=== PATIENT | female | born 1960 | race Caucasian/White ===

== ENCOUNTER 2018-01-25 18:36 | Emergency (ER) | payer OTHER ==
[~2018-01-25] VITALS: Ht 160 cm; Wt 96.2 kg
[~2018-01-25 18:36] MED LIST: ADVAIR HFA 230/12 GM IH; CIPRO500 MG; CLONAZEPAM1 MG PO; COZAAR50 MG PO; LEVAQUIN750 MG PO; OMEPRAZOLE20 MG PO; ORPH100T PO; PAXIL20 MG; PROVENTIL3 ML/2.5 M IH; RELPAX40 MG; SINGULAIR 10MG10 MG PO; TAMS0.4C PO; TESSALON PERLE100 M1 PO; TRAMADOL HCL-AP1 TAB; TUSSI PRES-B L120 M1 PO; ZOLOFT25 MG PO; ZOLOFT50 MG
[2018-01-25] MEDS ORDERED: ZANTAC300 MG (18:51)
[2018-01-25] MEDS ORDERED: PRILOSEC OTC20 MG (18:51)
[2018-01-25] MEDS ORDERED: HYDROCHLOROTHIA25 MG (18:53)
[2018-01-26] MEDS ORDERED: INTESTINEX680 M1 PO (02:18)
[2018-01-26] MEDS ORDERED: LEVSIN/SL0.125 MG PO (02:18)
[2018-01-26] MEDS ORDERED: PEPCID AC20 MG PO (02:18)
[2018-01-26] MEDS ORDERED: PROMETHAZINE HC25 MG PO (02:18)
[2018-01-27] MEDS ORDERED: ZOLOFT50 MG PO (13:15)
[2018-01-27] MEDS ORDERED: ZOLOFT25 MG PO (13:17)
== END 2018-01-26 03:35 | disposition home or self-care (01) ==
LOC: ER 18:36
DX: K52.89 Other specified noninfective gastroenteritis and colitis (principal)

== ENCOUNTER 2018-01-27 12:54 | Emergency (ER) | payer OTHER ==
[~2018-01-27] VITALS: Ht 152.4 cm; Wt 96.2 kg
[~2018-01-27 12:54] MED LIST changes: +HYDROCHLOROTHIA25 MG; +INTESTINEX680 M1 PO; +LEVSIN/SL0.125 MG PO; +PEPCID AC20 MG PO; +PRILOSEC OTC20 MG; +PROMETHAZINE HC25 MG PO; +ZANTAC300 MG
[2018-01-27] MEDS ORDERED: ZOLOFT50 MG PO (13:15)
[2018-01-27] MEDS ORDERED: ZOLOFT25 MG PO (13:17)
== END 2018-01-28 04:13 | disposition home or self-care (01) ==
LOC: ER 12:54
DX: K52.89 Other specified noninfective gastroenteritis and colitis (principal); R19.7 Diarrhea, unspecified; E87.6 Hypokalemia

== ENCOUNTER 2018-01-31 07:57 | Emergency (ER) | payer OTHER ==
[~2018-01-31] VITALS: Ht 162.6 cm; Wt 96.2 kg
[~2018-01-31 07:57] MED LIST changes: +ZOLOFT50 MG PO
== END 2018-01-31 19:12 | disposition home or self-care (01) ==
LOC: ER 07:57
DX: M79.605 Pain in left leg (principal); M79.604 Pain in right leg; E87.6 Hypokalemia

== ENCOUNTER 2018-04-20 00:55 | Emergency (ER) | payer OTHER ==
[~2018-04-20] VITALS: Ht 162.6 cm; Wt 92.5 kg
[2018-04-20] MEDS ORDERED: BUDESONIDE0.5 MG/2 M IH (08:35)
[2018-04-20] MEDS ORDERED: TESSALON PERLE100 MG PO (08:35)
[2018-04-20] MEDS ORDERED: MEDROLPACK PO (08:35)
[2018-04-20] MEDS ORDERED: IPRAT-ALBUT 0.5-3 ML IH (08:35)
[2018-04-20] MEDS ORDERED: MUCINEX DM ER1 EAC1 PO (08:35)
[2018-04-20] MEDS ORDERED: LEVAQUIN750 MG PO (08:35)
== END 2018-04-20 08:58 | disposition home or self-care (01) ==
LOC: ER 00:55
DX: J06.9 Acute upper respiratory infection, unspecified (principal); R55 Syncope and collapse; R06.02 Shortness of breath; F41.0 Panic disorder [episodic paroxysmal anxiety]; J11.1 Influenza due to unidentified influenza virus with other respiratory manifestations